=== PATIENT | female | born 1985 | race African-American/Black ===

== ENCOUNTER 2023-01-01 13:53 | Emergency (ER) | payer SELFPAY ==
[~2023-01-01] VITALS: Ht 165.1 cm; Wt 70.4 kg
[2023-01-01] MEDS ORDERED: TETANUS/DIPHTHERIA TOX ADULT 0.5 ML SYR ONE (14:21)
[2023-01-01] MEDS ORDERED: TETANUS/DIPHTHERIA TOX ADULT 0.5 ML SYR IM ONE (14:30)
[2023-01-01 15:18] VITALS: O2SAT 100
== END 2023-01-01 15:18 | disposition home or self-care (01) ==
LOC: FSED 13:59
DX: S00.81XA Abrasion of other part of head, initial encounter (principal); S40.212A Abrasion of left shoulder, initial encounter; S60.511A Abrasion of right hand, initial encounter; S80.212A Abrasion, left knee, initial encounter; V28.49XA Other motorcycle driver injured in noncollision transport accident in traffic accident, initial encounter; Y92.488 Other paved roadways as the place of occurrence of the external cause
CPT/HCPCS: 71046; 90471; 90714; 96372; 99283